=== PATIENT | male | born 1960 | race Caucasian/White ===

== ENCOUNTER 2023-09-13 18:51 | Inpatient (IN) | payer BC ==
[~2023-09-13] VITALS: Ht 172.7 cm; Wt 118.8 kg
[2023-09-13 18:53] VITALS: BP_SYST 123; PULSE 64; RESP 19; TEMP 98; O2SAT 97
[2023-09-13] MEDS ORDERED: [UNRECOGNIZED DRUG - OTHER] SQ (19:47)
[2023-09-13] MEDS ORDERED: SENN-153 PO (19:47)
[2023-09-13] MEDS ORDERED: [UNRECOGNIZED DRUG - CODE] PO (19:47)
[2023-09-13] MEDS ORDERED: FAMO-295 PO (19:47)
[2023-09-13] MEDS ORDERED: GLIP10TA11 PO (19:47)
[2023-09-13] MEDS ORDERED: CLON1TAB2 PO (19:47)
[2023-09-13] MEDS ORDERED: THIA100T13 PO (19:47)
[2023-09-13] MEDS ORDERED: LACT10SO6 PO (19:47)
[2023-09-13] MEDS ORDERED: ASPI-524 PO (19:47)
[2023-09-13] MEDS ORDERED: AMIO400T11 PO (19:47)
[2023-09-13] MEDS ORDERED: FOLI-43 PO (19:47)
[2023-09-13] MEDS ORDERED: MELA5TAB12 PO (19:47)
[2023-09-13] MEDS ORDERED: FLO44 PO (19:47)
[2023-09-13] MEDS ORDERED: PRED-531 PO (19:47)
[2023-09-13] MEDS ORDERED: [UNRECOGNIZED DRUG - CODE] PO (19:47)
[2023-09-13] MEDS ORDERED: SEMA2PEN SQ (19:47)
[2023-09-13] MEDS ORDERED: DIGOXIN PO (19:47)
[2023-09-13] MEDS ORDERED: ERGO1250 PO (19:47)
[2023-09-13] MEDS ORDERED: LEVO50CA4 PO (19:47)
[2023-09-13] MEDS ORDERED: DILT180C88 PO (19:47)
[2023-09-13] MEDS ORDERED: INSU100V46 (19:47)
[2023-09-13] MEDS ORDERED: METF1000 PO (19:47)
[2023-09-13] MEDS ORDERED: LIP40 PO (19:47)
[2023-09-13] MEDS ORDERED: POTA-360 PO (19:47)
[2023-09-13] MEDS ORDERED: FERR-31 PO (19:47)
[2023-09-13 20:14] LABS: BASOPHILS % (AUTO) 0.2 % (0.0-2.0); HEMATOCRIT 44.8 % (36-54); HEMOGLOBIN 14.5 g/dL (14.0-18.0); LYMPHOCYTES # (AUTO) 0.2 K/uL (1.0-5.5); LYMPHOCYTES % (AUTO) 1.8 % (20.5-51.5); MEAN CORPUSCULAR HEMOGLOBIN 28 pg (27-31); MEAN CORPUSCULAR HGB CONC 32 % (32-36); MEAN CORPUSCULAR VOLUME 87 fL (79.0-98.0); MONOCYTES # (AUTO) 0.3 K/uL (0.0-1.0); MONOCYTES % (AUTO) 2.1 % (1.7-9.3); NEUTROPHILS # (AUTO) 12.8 K/uL (1.8-7.7); NEUTROPHILS % (AUTO) 95.9 % (40.0-70.0); PLATELET COUNT (AUTO) 362 K/uL (130-430); RED BLOOD CELL COUNT(AUTO) 5.17 MIL/uL (4.2-6.2); RED CELL DISTRIBUTION WIDTH 13.8 % (9.0-15.0); WHITE BLOOD COUNT (AUTO) 13.3 K/uL (4.8-10.8)
[2023-09-13 20:45] LABS: ANION GAP 8 (5-15); CALCIUM 9.2 mg/dL (8.4-11.0); CARBON DIOXIDE 34 mmol/L (23-29); CHLORIDE 95 mmol/L (98-107); CREATININE 0.88 mg/dL (0.55-1.30); GFR AFRICAN AMERICAN 112 mL/min (>90); POTASSIUM 4.3 mmol/L (3.5-5.1); SODIUM SERUM 137 mmol/L (136-145); UREA NITROGEN, BLOOD 22 mg/dL (8-21)
[2023-09-13 20:57] LABS: GFR NON AFRICAN-AMERICAN 93 mL/min (>90)
[2023-09-13 20:58] LABS: GLUCOSE 415 mg/dL (74-106)
[2023-09-13] MEDS: LevALBUTEROL HCL 1.25 MG/0.5 ML *CONC.* VIAL.NEB (XOPENEX CONC.) INH SCH (21:30)
[2023-09-13 22:49] LABS: COVID19 ANTIGEN SOFIA FIA NEGATIVE (NEGATIVE)
[2023-09-13 22:54] LABS: INFLUENZA TYPE A Negative (NEGATIVE); INFLUENZA TYPE B NEGATIVE (NEGATIVE)
[2023-09-13] MEDS ORDERED: VANCOMYCIN HCL 1000 MG/VIAL IV ONE (23:14)
[2023-09-13] MEDS ORDERED: CEFEPIME 2 GM/VIAL (MAXIPIME) ONE (23:14)
[2023-09-13 23:24] VITALS: BP_SYST 123; PULSE 64; O2SAT 97
[2023-09-13] MEDS: CEFEPIME 2 GM in D5W 100 ML IV ONE (23:25)
[2023-09-13] MEDS: HYDROCORTISONE SOD SUCC 100 MG/2 ML VIAL IVP ONE (23:25)
[2023-09-14] VITALS (8 sets, daily range): BP systolic 120–146; PULSE 60; RESP 18; TEMP 96–98.2; O2SAT 95–98
[2023-09-14] MEDS: VANCOMYCIN HCL 1,000 MG in NS 250 ML IV ONE (01:04)
[2023-09-14] MEDS: AZITHROMYCIN 500 MG/VIAL (ZITHROMAX) IV ONE (03:38)
[2023-09-14] MEDS: ALBUTEROL SULFATE 0.083% 2.5 MG/3 ML VIAL.NEB INH ONE (04:00)
[2023-09-14] MEDS: IPRATROPIUM BROM 0.5 MG/2.5 ML VIAL.NEB (ATROVENT) INH ONE (04:00)
[2023-09-14] MEDS: cefTRIAXone 1 GM VIAL ONE (04:43)
[2023-09-14] MEDS: cefTRIAXone 1 GM IVPB PREMIX 50 ML IV SCH (04:43)
[2023-09-14] MEDS: AZITHROMYCIN 500 MG in NS 250 ML IV SCH (05:31)
[2023-09-14] MEDS: INSULIN REGULAR, HUMAN 100 UNITS/ML, 3 ML VIAL (humuLIN R) SUBCUT PRN (06:16)
[2023-09-14] MEDS: LevALBUTEROL HCL 1.25 MG/0.5 ML *CONC.* VIAL.NEB (XOPENEX CONC.) INH SCH (07:21)
[2023-09-14] MEDS: ENOXAPARIN SODIUM 40 MG/0.4 ML SYRINGE SUBCUT SCH (09:01)
[2023-09-14] MEDS ORDERED: NON-FORMULARY MEDICATION (Semaglutide (Ozempic) 2 MG) SQ SCH (18:30)
[2023-09-14] MEDS ORDERED: FLUTICASONE 44 mcg/ACTUATION MDI AER.W.ADAP INH SCH (18:30)
[2023-09-14] MEDS ORDERED: CLONAZEPAM PO SCH (18:30)
[2023-09-14] MEDS ORDERED: [UNRECOGNIZED DRUG - REMARK] PO SCH (18:30)
[2023-09-14] MEDS ORDERED: DUPILUMAB 300 MG SQ SCH (18:30)
[2023-09-14] MEDS: AMIODARONE HCL 200 MG TABLET PO ONE (18:58)
[2023-09-14] MEDS: DIGOXIN 0.25 MG TABLET PO ONE (18:58)
[2023-09-14] MEDS: ASPIRIN 81 MG TAB.CHEW PO ONE (18:58)
[2023-09-14] MEDS: metFORMIN HCL 500 MG TABLET PO ONE (19:01)
[2023-09-14] MEDS: SENNOSIDES 8.6 MG TABLET PO SCH (21:00)
[2023-09-14] MEDS: NYSTATIN 15 GM TOPICAL POWDER TP SCH (21:00)
[2023-09-14] MEDS: ATORVASTATIN 20 MG TABLET PO SCH (21:03)
[2023-09-14] MEDS: FAMOTIDINE 20 MG TABLET PO SCH (21:03)
[2023-09-14] MEDS: ATENOLOL 50 MG TABLET (TENORMIN) PO SCH (21:07)
[2023-09-14] MEDS: MELATONIN 5 MG TABLET PO SCH (21:08)
[2023-09-14] MEDS: DILTIAZEM HCL 180 MG CAP.SR.24H PO SCH (21:08)
[2023-09-14] MEDS: SODIUM CHLORIDE 0.65% NASAL SPRAY NS PRN (21:17)
[2023-09-15] VITALS (8 sets, daily range): BP systolic 134–143; PULSE 55–63; RESP 15–19; TEMP 96.2–98.6; O2SAT 96–100
[2023-09-15 06:01] LABS: BASOPHILS % (AUTO) 0.3 % (0.0-2.0); EOSINOPHILS # (AUTO) 0.1 K/uL (0.0-0.4); EOSINOPHILS % (AUTO) 1.3 % (0.0-4.0); HEMATOCRIT 44.7 % (36-54); HEMOGLOBIN 14.4 g/dL (14.0-18.0); LYMPHOCYTES # (AUTO) 1.5 K/uL (1.0-5.5); LYMPHOCYTES % (AUTO) 14.3 % (20.5-51.5); MEAN CORPUSCULAR HEMOGLOBIN 28 pg (27-31); MEAN CORPUSCULAR HGB CONC 32 % (32-36); MEAN CORPUSCULAR VOLUME 87 fL (79.0-98.0); MONOCYTES # (AUTO) 0.6 K/uL (0.0-1.0); MONOCYTES % (AUTO) 5.4 % (1.7-9.3); NEUTROPHILS # (AUTO) 8.4 K/uL (1.8-7.7); NEUTROPHILS % (AUTO) 78.7 % (40.0-70.0); PLATELET COUNT (AUTO) 326 K/uL (130-430); RED BLOOD CELL COUNT(AUTO) 5.13 MIL/uL (4.2-6.2); WHITE BLOOD COUNT (AUTO) 10.6 K/uL (4.8-10.8)
[2023-09-15 06:45] LABS: ALBUMIN 2.6 g/dL (3.4-4.8); CALCIUM 9.1 mg/dL (8.4-11.0); CREATININE 0.67 mg/dL (0.55-1.30); DIGOXIN 1.7 ng/mL (0.80-2.00); POTASSIUM 3.3 mmol/L (3.5-5.1); TOTAL BILIRUBIN 0.2 mg/dL (0.0-1.0); TOTAL PROTEIN, SERUM 6.1 g/dL (6.4-8.3)
[2023-09-15] MEDS: LEVOTHYROXINE SODIUM 0.05 MG TABLET PO SCH (06:57)
[2023-09-15] MEDS: BUDESONIDE 0.5 MG/2 ML AMPUL.NEB INH SCH (07:38)
[2023-09-15] MEDS: DABIGATRAN ETEXILATE MESYLATE 75 MG CAPSULE PO SCH (09:00)
[2023-09-15] MEDS: TERbinafine HCL 250 MG TABLET(LamISIL) PO SCH (09:00)
[2023-09-15] MEDS: metFORMIN HCL 500 MG TABLET PO SCH (10:19)
[2023-09-15] MEDS: AMIODARONE HCL 200 MG TABLET PO SCH (10:19)
[2023-09-15] MEDS: FOLIC ACID 1 MG TABLET PO SCH (10:20)
[2023-09-15] MEDS: FERROUS SULFATE 325 MG TABLET.DR PO SCH (10:20)
[2023-09-15] MEDS: THIAMINE HCL 100 MG TABLET PO SCH (10:20)
[2023-09-15] MEDS: DIGOXIN 0.25 MG TABLET PO SCH (10:21)
[2023-09-15] MEDS: ASPIRIN 81 MG TAB.CHEW PO SCH (10:21)
[2023-09-15] MEDS: LACTULOSE 20 GM/30 ML UDC PO SCH (10:21)
[2023-09-15] MEDS: predniSONE 20 MG TABLET PO SCH (10:31)
[2023-09-15] MEDS: LevALBUTEROL HCL 1.25 MG/0.5 ML *CONC.* VIAL.NEB (XOPENEX CONC.) INH PRN (17:16)
[2023-09-15] MEDS: clonazePAM 0.5 MG TABLET PO PRN (22:57)
[2023-09-16] VITALS (11 sets, daily range): BP systolic 116–140; PULSE 60–81; RESP 16–18; TEMP 96.5–98.6; O2SAT 94–98
[2023-09-17] VITALS (8 sets, daily range): BP systolic 107–138; PULSE 60–62; RESP 16–18; TEMP 97–98; O2SAT 95–98
[2023-09-17] MEDS ORDERED: OZEMPIC SUBCUT SCH (09:00)
[2023-09-17] MEDS: POTASSIUM CHLORIDE 20 MEQ TABLET.ER PO SCH (11:13)
[2023-09-17] MEDS: DIPHENHYDRAMINE HCL 25 MG CAPSULE PO SCH (22:47)
[2023-09-18] VITALS (8 sets, daily range): BP systolic 106–113; PULSE 59–61; RESP 18–20; TEMP 97.4–97.8; O2SAT 94–99
[2023-09-19] VITALS (9 sets, daily range): BP systolic 115–141; PULSE 60–91; RESP 16–19; TEMP 96.2–98.7; O2SAT 96–100
[2023-09-19 08:07] LABS: BASOPHILS % (AUTO) 0.2 % (0.0-2.0); EOSINOPHILS # (AUTO) 0.1 K/uL (0.0-0.4); EOSINOPHILS % (AUTO) 1.3 % (0.0-4.0); HEMATOCRIT 41.2 % (36-54); HEMOGLOBIN 13.2 g/dL (14.0-18.0); LYMPHOCYTES # (AUTO) 0.6 K/uL (1.0-5.5); LYMPHOCYTES % (AUTO) 7.3 % (20.5-51.5); MEAN CORPUSCULAR HEMOGLOBIN 28 pg (27-31); MEAN CORPUSCULAR HGB CONC 32 % (32-36); MEAN CORPUSCULAR VOLUME 87 fL (79.0-98.0); MONOCYTES # (AUTO) 0.4 K/uL (0.0-1.0); MONOCYTES % (AUTO) 5.1 % (1.7-9.3); NEUTROPHILS # (AUTO) 7.3 K/uL (1.8-7.7); NEUTROPHILS % (AUTO) 86.1 % (40.0-70.0); PLATELET COUNT (AUTO) 269 K/uL (130-430); RED BLOOD CELL COUNT(AUTO) 4.73 MIL/uL (4.2-6.2); RED CELL DISTRIBUTION WIDTH 14.3 % (9.0-15.0); WHITE BLOOD COUNT (AUTO) 8.4 K/uL (4.8-10.8)
[2023-09-19 08:41] LABS: ALBUMIN 2.2 g/dL (3.4-4.8); CALCIUM 8.7 mg/dL (8.4-11.0); CREATININE 0.62 mg/dL (0.55-1.30); POTASSIUM 4.4 mmol/L (3.5-5.1); TOTAL BILIRUBIN 0.1 mg/dL (0.0-1.0)
[2023-09-20] VITALS (9 sets, daily range): BP systolic 119–149; PULSE 60–61; RESP 16–19; TEMP 97.5–98.2; O2SAT 60–100
[2023-09-20 07:58] LABS: BASOPHILS % (AUTO) 0.4 % (0.0-2.0); EOSINOPHILS # (AUTO) 0.2 K/uL (0.0-0.4); EOSINOPHILS % (AUTO) 2.3 % (0.0-4.0); HEMATOCRIT 39.9 % (36-54); HEMOGLOBIN 12.8 g/dL (14.0-18.0); LYMPHOCYTES # (AUTO) 0.8 K/uL (1.0-5.5); LYMPHOCYTES % (AUTO) 8.2 % (20.5-51.5); MEAN CORPUSCULAR HEMOGLOBIN 28 pg (27-31); MEAN CORPUSCULAR HGB CONC 32 % (32-36); MEAN CORPUSCULAR VOLUME 88 fL (79.0-98.0); MONOCYTES # (AUTO) 0.6 K/uL (0.0-1.0); MONOCYTES % (AUTO) 5.9 % (1.7-9.3); NEUTROPHILS # (AUTO) 8.3 K/uL (1.8-7.7); NEUTROPHILS % (AUTO) 83.2 % (40.0-70.0); PLATELET COUNT (AUTO) 277 K/uL (130-430); RED BLOOD CELL COUNT(AUTO) 4.56 MIL/uL (4.2-6.2); RED CELL DISTRIBUTION WIDTH 14.2 % (9.0-15.0)
[2023-09-20] MEDS: MICAFUNGIN SODIUM 50 MG in NS 50 ML IV ONE (17:55)
[2023-09-20] MEDS: cefTRIAXone 1 GM IVPB PREMIX 50 ML IV SCH (22:55)
[2023-09-21] VITALS (7 sets, daily range): BP systolic 124–141; PULSE 59–62; RESP 15–20; TEMP 97.1–98.6; O2SAT 96–99
[2023-09-21] MEDS ORDERED: ERGOCALCIFEROL 8000 UNITS/ML ORAL SOLUTION, 60 ML BOTTLE PO SCH (09:00)
[2023-09-21] MEDS: MICAFUNGIN SODIUM 50 MG in NS 50 ML IV SCH (11:45)
[2023-09-21] MEDS: CALAMINE 120 ML TOPICAL LOTION TP PRN (22:05)
[2023-09-22] VITALS (7 sets, daily range): BP systolic 120–144; PULSE 60–70; RESP 15–20; TEMP 96.5–97.5; O2SAT 96–100
[2023-09-22 10:06] LABS: HSV 1 IgG, TYPE SPECIFIC 2.06 index (0.00-0.90); HSV 2 IgG, TYPE SPECIFIC <0.91 index (0.00-0.90)
[2023-09-22] MEDS: ACYCLOVIR 400 MG TABLET PO SCH (15:01)
[2023-09-22] MEDS: PERMETHRIN 5% 60 GM CREAM.GM. TP ONE (21:33)
[2023-09-23] VITALS (9 sets, daily range): BP systolic 115–142; PULSE 60–67; RESP 18–24; TEMP 96.9–98; O2SAT 93–98
[2023-09-23] MEDS: IVERMECTIN 3 MG TABLET PO ONE (12:07)
[2023-09-23] MEDS: FLUCONAZOLE 200 mg/ NS 100 ML IV SCH (16:40)
[2023-09-24] VITALS (9 sets, daily range): BP systolic 127–141; PULSE 60–63; RESP 16–20; TEMP 96.6–98.5; O2SAT 93–98
[2023-09-24] MEDS: PERMETHRIN 5% 60 GM CREAM.GM. TP ONE (13:17)
[2023-09-24 20:06] LABS: MYCOPLASMA PNEUMONIAE IgM <770 U/mL (0-769)
[2023-09-25] VITALS (9 sets, daily range): BP systolic 116–126; PULSE 60–70; RESP 18–20; TEMP 97.3–97.6; O2SAT 94–99
[2023-09-26] VITALS (8 sets, daily range): BP systolic 117–132; PULSE 62–87; RESP 17–20; TEMP 97.8–98.7; O2SAT 94–99
[2023-09-26] MEDS: FLUCONAZOLE 200 MG TABLET (DIFLUCAN) PO SCH (09:31)
[2023-09-26] MEDS: IVERMECTIN 3 MG TABLET PO ONE (14:45)
[2023-09-26] MEDS: LevALBUTEROL HCL 1.25 MG/0.5 ML *CONC.* VIAL.NEB (XOPENEX CONC.) INH SCH (19:11)
[2023-09-27] VITALS (12 sets, daily range): BP systolic 126–144; PULSE 57–96; RESP 16–20; TEMP 97.7–98.9; O2SAT 94–98
[2023-09-27] MEDS: IVERMECTIN 3 MG TABLET PO ONE (13:02)
[2023-09-27] MEDS: PERMETHRIN 5% 60 GM CREAM.GM. TP ONE (13:02)
[2023-09-28] VITALS (8 sets, daily range): BP systolic 124–154; PULSE 57–72; RESP 18–20; TEMP 97–98.1; O2SAT 96–99
[2023-09-28] MEDS: PERMETHRIN 5% 60 GM CREAM.GM. TP ONE (17:33)
[2023-09-29] VITALS (11 sets, daily range): BP systolic 109–140; PULSE 61–85; RESP 18–20; TEMP 97.7–98.6; O2SAT 95–100
[2023-09-29] MEDS: LevALBUTEROL HCL 1.25 MG/0.5 ML *CONC.* VIAL.NEB (XOPENEX CONC.) INH SCH (14:01)
[2023-09-29] MEDS: PERMETHRIN 5% 60 GM CREAM.GM. TP ONE (20:59)
[2023-09-30 01:44] VITALS: BP_SYST 130; PULSE 68; RESP 19; TEMP 98; O2SAT 98
[2023-09-30 07:35] VITALS: O2SAT 99
[2023-09-30 11:30] VITALS: BP_SYST 109; PULSE 91; RESP 17; TEMP 98.1; O2SAT 96
[2023-09-30 17:15] VITALS: BP_SYST 127; PULSE 64; RESP 17; TEMP 98; O2SAT 96
[2023-09-30 20:12] VITALS: O2SAT 98
[2023-09-30 20:40] VITALS: BP_SYST 137; PULSE 61; RESP 20; TEMP 98.1; O2SAT 98
[2023-10-01 00:45] VITALS: BP_SYST 148; PULSE 64; RESP 20; TEMP 97.5; O2SAT 64
[2023-10-01 07:20] VITALS: O2SAT 99
[2023-10-01 19:49] VITALS: O2SAT 97
[2023-10-01 20:30] VITALS: BP_SYST 129; PULSE 60; RESP 20; TEMP 97; O2SAT 96
[2023-10-02] VITALS (10 sets, daily range): BP systolic 93–144; PULSE 49–89; RESP 16–20; TEMP 96.1–98.7; O2SAT 97–100
[2023-10-02] MEDS ORDERED: FLUCONAZOLE 200 MG TABLET (DIFLUCAN) PO ONE (11:30)
[2023-10-02] MEDS: IVERMECTIN 3 MG TABLET PO ONE (11:54)
[2023-10-03] VITALS (7 sets, daily range): BP systolic 100–143; PULSE 45–65; RESP 13–18; TEMP 96.3–98.6; O2SAT 97–100
[2023-10-03] MEDS: LevALBUTEROL HCL 1.25 MG/0.5 ML *CONC.* VIAL.NEB (XOPENEX CONC.) INH SCH (13:22)
[2023-10-03] MEDS: MELATONIN 5 MG TABLET PO ONE (21:26)
[2023-10-04] VITALS (8 sets, daily range): BP systolic 110–137; PULSE 60–65; RESP 18–20; TEMP 96.6–98.8; O2SAT 93–99
[2023-10-05] VITALS (9 sets, daily range): BP systolic 106–134; PULSE 60–73; RESP 15–20; TEMP 97.2–98.4; O2SAT 95–99
[2023-10-05 04:20] LABS: BASOPHILS # (AUTO) 0.1 K/uL (0.0-0.2); BASOPHILS % (AUTO) 0.7 % (0.0-2.0); EOSINOPHILS # (AUTO) 0.1 K/uL (0.0-0.4); EOSINOPHILS % (AUTO) 1.1 % (0.0-4.0); HEMOGLOBIN 13.2 g/dL (14.0-18.0); LYMPHOCYTES # (AUTO) 1.4 K/uL (1.0-5.5); LYMPHOCYTES % (AUTO) 13.3 % (20.5-51.5); MEAN CORPUSCULAR HEMOGLOBIN 28 pg (27-31); MEAN CORPUSCULAR HGB CONC 32 % (32-36); MEAN CORPUSCULAR VOLUME 87 fL (79.0-98.0); MONOCYTES # (AUTO) 0.6 K/uL (0.0-1.0); MONOCYTES % (AUTO) 6.1 % (1.7-9.3); NEUTROPHILS # (AUTO) 8.3 K/uL (1.8-7.7); NEUTROPHILS % (AUTO) 78.8 % (40.0-70.0); PLATELET COUNT (AUTO) 334 K/uL (130-430); RED BLOOD CELL COUNT(AUTO) 4.72 MIL/uL (4.2-6.2); RED CELL DISTRIBUTION WIDTH 15.3 % (9.0-15.0); WHITE BLOOD COUNT (AUTO) 10.6 K/uL (4.8-10.8)
[2023-10-05 04:57] LABS: CALCIUM 8.7 mg/dL (8.4-11.0); CREATININE 0.77 mg/dL (0.55-1.30); POTASSIUM 4.3 mmol/L (3.5-5.1)
[2023-10-06] VITALS (9 sets, daily range): BP systolic 105–122; PULSE 60–65; RESP 16–19; TEMP 98.1–98.6; O2SAT 66–99
[2023-10-07] VITALS (8 sets, daily range): BP systolic 112–144; PULSE 60–69; RESP 16–19; TEMP 97.6–98.4; O2SAT 93–100
[2023-10-07] MEDS: DEXTROSE 50% JECT 50 ML DISP.SYRIN IVP PRN (05:59)
[2023-10-08] VITALS (10 sets, daily range): BP systolic 121–130; PULSE 61–64; RESP 16–20; TEMP 96.5–97; O2SAT 95–97
== END 2023-10-08 20:22 | DRG 137 ==
LOC: SED 18:51 → SMU 21:29
PROVIDERS: ADMIT Family Medicine; ATTEND Family Medicine
DX: J15.69 Pneumonia due to other Gram-negative bacteria (principal); E43 Unspecified severe protein-calorie malnutrition; I48.20 Chronic atrial fibrillation, unspecified; J44.0 Chronic obstructive pulmonary disease with (acute) lower respiratory infection; I50.9 Heart failure, unspecified; B86 Scabies; I11.0 Hypertensive heart disease with heart failure; E03.9 Hypothyroidism, unspecified; E11.9 Type 2 diabetes mellitus without complications; Z68.39 Body mass index [BMI] 39.0-39.9, adult; E66.9 Obesity, unspecified; J44.9 Chronic obstructive pulmonary disease, unspecified; Z86.73 Personal history of transient ischemic attack (TIA), and cerebral infarction without residual deficits; Z95.0 Presence of cardiac pacemaker; Z87.891 Personal history of nicotine dependence; L30.9 Dermatitis, unspecified
CPT/HCPCS: 36415; 71045; 80048; 80053; 80162; 82948; 82962; 83735; 83880; 84484; 85025; 85651; 86695; 86696; 86738; 87081; 87210; 93005; 94640; 94664; 94760; 96365; 96375; 97110-GP; 97530-GP; 99285; J0456; J0692; J0696; J1450; J1650; J1720; J1815; J3370; J7050; J7512; J7612; J7626; Q0163